=== PATIENT | female | born 1980 | race Caucasian/White ===

== ENCOUNTER 2025-04-27 07:57 | Day surgery (SDC) | payer MEDICARE, MEDICAID ==
[2025-04-27] MEDS ORDERED: Propofol 200 MG/20 ML SDV IV ONE (07:58)
[2025-04-27] MEDS ORDERED: Lidocaine 2% 5 ML SDV INJECT ONE (07:58)
[2025-04-27] MEDS ORDERED: Midazolam 1 MG/ML 2 ML SDV IV ONE (07:58)
[2025-04-27] MEDS ORDERED: Lidocaine 2% 5 ML SDV ONE (07:58)
[2025-04-27] MEDS ORDERED: Sodium Chloride 0.9% 10 ML Syringe FLUSH PRN (08:00)
[2025-04-27] MEDS: Lactated Ringers 1,000 ML IV SCH (09:38)
== END 2025-04-27 10:51 | disposition home or self-care (01) ==
LOC: FB.SDS 07:57
PROVIDERS: ATTEND Surgery
DX: K21.00 Gastro-esophageal reflux disease with esophagitis, without bleeding (principal); K44.9 Diaphragmatic hernia without obstruction or gangrene; J45.909 Unspecified asthma, uncomplicated; I10 Essential (primary) hypertension; F32.A Depression, unspecified; Z79.899 Other long term (current) drug therapy; Z88.6 Allergy status to analgesic agent; Z88.8 Allergy status to other drugs, medicaments and biological substances; Z91.048 Other nonmedicinal substance allergy status; Z88.5 Allergy status to narcotic agent
CPT/HCPCS: 00731; 88305; J2003; J2250; J2704; J7120